=== PATIENT | female | born 1960 | race Caucasian/White ===

== ENCOUNTER 2023-05-25 12:55 | Emergency (ER) | payer OTHER, SELFPAY ==
[2023-05-25 13:15] VITALS: BP 166/80; PULSE 7; RESP 18; TEMP 36.6; O2SAT 97; BMI 47.6
--- NOTE | 2023-05-25 13:23 | CRLHL7_ITS ---
For Patients: As a result of the Cures Act, medical imaging exams and procedure reports are released immediately into your electronic medical record. You may view this report before your referring provider. If you have questions, please contact your health care provider. INDICATION: FALL, HIT HEAD AND UPPER BACK TECHNIQUE: CT cervical spine without contrast. COMPARISON: None. FINDINGS: Vertebrae: Straightening of expected cervical lordosis. There are no fractures or suspicious bony lesions. Discs and facet joints: There are diffuse degenerative changes in the disc spaces and facet joints. Extraspinal findings: Paraspinous soft tissues are unremarkable. IMPRESSION: 1. No sign of acute cervical spine fracture. 2. Multilevel degenerative spondylosis. Please note that all CT scans at this facility use dose modulation, iterative reconstruction, and/or weight-based dosing when appropriate to reduce radiation dose to as low as reasonably achievable. Dictated by Kervin Allen MD @ 05/25/2023 2:11:09 PM (Electronically Signed)
--- NOTE | 2023-05-25 13:23 | CRLHL7_ITS ---
For Patients: As a result of the Century Cures Act, medical imaging exams and procedure reports are released immediately into your electronic medical record. You may view this report before your referring provider. If you have questions, please contact your health care provider. INDICATION: FALL, HIT HEAD AND UPPER BACK TECHNIQUE: CT thoracic spine without contrast. COMPARISON: None. FINDINGS: Vertebrae: Alignment is normal. There are no fractures or suspicious bony lesions. Discs and facet joints: Mild multilevel ventral disc space narrowing facet arthropathy. Extraspinal findings: Prevertebral soft tissues, visualized airway, and visualized lungs are unremarkable. IMPRESSION: No evidence of thoracic spine fracture. Please note that all CT scans at this facility use dose modulation, iterative reconstruction, and/or weight-based dosing when appropriate to reduce radiation dose to as low as reasonably achievable. Dictated by Kervin Allen MD @ 05/25/2023 2:17:42 PM (Electronically Signed)
--- NOTE | 2023-05-25 13:23 | CRLHL7_ITS ---
For Patients: As a result of the Century Cures Act, medical imaging exams and procedure reports are released immediately into your electronic medical record. You may view this report before your referring provider. If you have questions, please contact your health care provider. INDICATION: FALL, HIT HEAD AND UPPER BACK TECHNIQUE: CT head without contrast. COMPARISON: None. FINDINGS: CSF spaces: Within normal limits for age. Brain parenchyma and extra-axial spaces: The oliveira-white differentiation is normal. No sign of mass effect, hemorrhage, or midline shift. No extra-axial fluid collection. Skull base and calvarium: The visualized paranasal sinuses and mastoid air cells demonstrate no acute or significant findings. The visualized orbits are grossly unremarkable. No skull fractures. IMPRESSION: No evidence of acute intracranial abnormality. Please note that all CT scans at this facility use dose modulation, iterative reconstruction, and/or weight-based dosing when appropriate to reduce radiation dose to as low as reasonably achievable. Dictated by Kervin Allen MD @ 05/25/2023 2:07:10 PM (Electronically Signed)
--- NOTE | 2023-05-25 14:13 | ED_ITS ---
HPI - Head Injury General Date Seen: 05/25/23 Chief complaint: Head Injury/Pain Stated complaint: fall-hit head Time Seen by Provider: 05/25/23 13:21 Source: patient Mode of arrival: ambulatory Limitations: no limitations History of Present Illness HPI Narrative: Patient is a 62-year-old female presenting to emergency department from urgent care after falling in her driveway. 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 She has a bili of this and does show her head she hit the ground decent amount of force. Says the pain is in her lower neck and upper back. States initially she had some vision disturbances that has since fully resolved. She does states she has had mild headache at this time. Denies weakness, numbness No other concerns noted at this time. Did not lose consciousness. states he is otherwise acting normal at this time. Denies chest pain, shortness of breath, nausea/vomiting, abdominal pain. Did not have any lightheadedness or dizziness before or after the fall Related Data Home Medications Medication Instructions Recorded Confirmed amlodipine 10 mg tablet 10 mg PO DAILY 05/25/23 05/25/23 atorvastatin 20 mg tablet 20 mg PO QPM 05/25/23 05/25/23 escitalopram oxalate 10 mg tablet 10 mg PO DAILY 05/25/23 05/25/23 losartan 100 mg tablet 100 mg PO DAILY 05/25/23 05/25/23 Allergies Allergy/AdvReac Type Severity Reaction Status Date / Time No Known Drug Allergies Allergy Verified 05/25/23 13:19 Review of Systems Status of ROS: Reports: 10 or more systems reviewed and unremarkable except as noted in History and below PFSH PFSH Social History Non-prescribed substance use: denies use Exam Narrative: Exam Narrative: Const: Well-nourished, Well-developed, in mild distress Eyes: PERRL, no conjunctival injection, and symmetrical lids HENT: Atraumatic external nose and ears. Moist mucous membranes. Neck: Symmetric, trachea midline, No thyromegaly. CVS: RRR, No murmurs or gallops. Peripheral pulses 2+ and equal in all extremities RESP: Unlabored respiratory effort. Clear to auscultation bilaterally. GI: Nontender/Nondistended, No rebound or guarding. MSK:Extremities w/o deformity, Normal Active ROM, mild midline tenderness lower cervical spine to upper thoracic spine Skin: Warm, Dry. No rashes or lesions. Neuro: Normal Muscle tone, No focal neurological deficits. Psych: Awake, Alert, & Oriented x3. Appropriate mood and affect. Const: Vital Signs, click to edit/add: Vital Signs - 24 hr 05/25/23 13:15 Temperature 97.8 F Pulse Rate [Right Pulse Oximeter] 7 L Respiratory Rate 18 Blood Pressure [Ri ght Upper Arm] 166/80 H Pulse Oximetry 97 Oxygen Delivery Me thod Room Air Course Vital Signs Vital signs: Initial Vital Signs Temperature 97.8 F 05/25/23 13:15 Temperature Source Temporal Artery Scan 05/25/23 13:15 Pulse Rate 7 L 05/25/23 13:15 Respiratory Rate 18 05/25/23 13:15 Blood Pressure 166/80 H 05/25/23 13:15 Blood Pressure Mean 108 H 05/25/23 13:15 Blood Pressure Position Sitting 05/25/23 13:15 Pulse Oximetry 97 05/25/23 13:15 Oxygen Delivery Method Room Air 05/25/23 13:15 Vital Signs Temperature 97.8 F 05/25/23 13:15 Pulse Rate 7 L 05/25/23 13:15 Respiratory Rate 18 05/25/23 13:15 Blood Pressure 166/80 H 05/25/23 13:15 Pulse Oximetry 97 05/25/23 13:15 Oxygen Delivery Method Room Air 05/25/23 13:15 Temperature 97.8 F 05/25/23 13:15 Pulse Rate 7 L 05/25/23 13:15 Respiratory Rate 18 05/25/23 13:15 Blood Pressure 166/80 H 05/25/23 13:15 Pulse Oximetry 97 05/25/23 13:15 Oxygen Delivery Method Room Air 05/25/23 13:15 MDM - Head Injury MDM Narrative Medical decision making narrative: The patient is a 62-year-old female presenting to the emergency department after slipping in her dry brain hitting her head. She currently has a headache, upper back pain, lower cervical pain. This occurred within the past [address] head, cervical spine, thoracic spine. Not requiring pain meds right now. Images returned showing no acute abnormalities. She is within the time frame that we can rule out a traumatic subarachnoid hemorrhage. Again she is not on any blood thinners. He is otherwise doing well but did give her strict return precautions under she develops any neurological deficits. She states she understands. She will be discharged home. Imaging Data CT scan head: Radiologist's impression: No evidence of acute intracranial abnormality. Please note that all CT scans at this facility use dose modulation, iterative reconstruction, and/or weight-based dosing when appropriate to reduce radiation dose to as low as reasonably achievable. Dictated by Kervin Allen MD @ 05/25/2023 2:07:[address] scan cervical spine: Radiologist's impression: 1. No sign of acute cervical spine fracture. 2. Multilevel degenerative spondylosis. Please note that all CT scans at this facility use dose modulation, iterative reconstruction, and/or weight-based dosing when appropriate to reduce radiation dose to as low as reasonably achievable. Dictated by Kervin Allen MD @ 05/25/2023 2:11:[address] scan thoracic spine: Radiologist's impression: No evidence of thoracic spine fracture. Please note that all CT scans at this facility use dose modulation, iterative reconstruction, and/or weight-based dosing when appropriate to reduce radiation dose to as low as reasonably achievable. Dictated by Kervin Allen MD @ 05/25/2023 2:17:42 PM Discharge Plan Discharge Clinical Impression: Closed head injury Qualifiers: Encounter type: initial encounter Qualified Code(s): S09.90XA - Unspecified injury of head, initial encounter Patient Disposition: Home, Self-Care Condition: Stable Instructions: Head Injury (ED) Additional Instructions: You likely gave herself a mild concussion causing her headache. There is no signs of acute injuries on your imaging but if you develop any neurological issues such as focal numbness or weakness or issues with memory or speech return to the emergency department for re-evaluation. Prescriptions: No Action atorvastatin 20 mg tablet 20 mg PO QPM amlodipine 10 mg tablet 10 mg PO DAILY losartan 100 mg tablet 100 mg PO DAILY escitalopram oxalate 10 mg tablet 10 mg PO DAILY Follow Up/Referrals: Kelsey Orellana, RYAN, [employer] [Primary Care Provider] - Stand Alone Forms: [facility] Info Instructions
== END 2023-05-25 14:56 | disposition home or self-care (01) ==
PROVIDERS: Emergency Provider Student in an Organized Health Care Education/Training Program; PCP Nurse Practitioner Family
DX: S09.90XA Unspecified injury of head, initial encounter (principal); W01.198A Fall on same level from slipping, tripping and stumbling with subsequent striking against other object, initial encounter; Y93.01 Activity, walking, marching and hiking; Y92.014 Private driveway to single-family (private) house as the place of occurrence of the external cause
CPT/HCPCS: 70450; 72125; 72128; 99283; 99285